=== PATIENT | male | born 1960 | race African-American/Black ===

== ENCOUNTER 2020-10-25 15:01 | Emergency (ER) | payer MEDICAID, OTHER ==
[~2020-10-25] VITALS: Ht 177.8 cm; Wt 73.9 kg
--- NOTE | 2020-10-25 15:14 | NUR ---
Patient presented to the ER for possible STD. Claimed to have burning on urination, yellow discharge. HAd unprotected sex 3 days ago and claims to have symptoms start that night. NKA Independently ambulatory [id number] No significant medical history
[2020-10-25 15:18] VITALS: BP 148/88
[2020-10-25 16:06] LABS: APPEARANCE,URINE CLEAR; BILIRUBIN, URINE NEGATIVE (NEGATIVE); COLOR,URINE PALE YELLOW; GLUCOSE, URINE (UA) NEGATIVE (NEGATIVE); KETONES,URINE NEGATIVE (NEGATIVE); LEUKOCYTE ESTERASE ,URINE NEGATIVE (NEGATIVE); NITRITE,URINE NEGATIVE (NEGATIVE); PH,URINE 6 (4.5-8.0); PROTEIN,URINE NEGATIVE (NEGATIVE); UROBILINOGEN,URINE NORMAL MG/DL (0.0-1.0)
[2020-10-25] MEDS ORDERED: cefTRIAXone 500mg Inj IM ONE (17:00)
[2020-10-25] MEDS ORDERED: Lidocaine 1% MPF 10mg/ml 5ml INJ ONE (17:00)
[2020-10-25] MEDS ORDERED: VIBRAMYCIN100 MG ORAL (17:03)
--- NOTE | 2020-10-25 17:03 | Emergency Room Report ---
History of Present Illness General Chief Complaint: Male Urogenital Problems Source: Patient Present Illness HPI 59 YO male presents to the ED c/o 12/11 in severity dysuria and urinary frequency x 3 days. Pt. reports acute onset after having unprotected intercourse with a new partner. Pt. denies hematuria or discharge. Pt. denies testicular pain or tenderness. He denies abdominal pain or tenderness. He denies swollen tender lymph nodes. Denies fevers or chills. Pt. reports hx of std in the past which presented in the same way. He denies nausea or vomiting. Denies hx of prostate issues. Denies personal or familial hx of DM. Denies significant PmHx. reports ETOH and THC use intermittently/socially. Allergies: Coded Allergies: No Known Allergies (Unverified , 10/25/20) COVID-19 Screening Contact w/high risk pt: No Experienced COVID-19 symptoms?: No COVID-19 Testing performed COLLECTIONS PROFESSIONAL: No COVID-19 Testing Source: have not been tested Patient History Past Medical History: see triage record Past Surgical History: none Pertinent Family History: none Reviewed Nursing Documentation: PMH: Agreed; PSxH: Agreed Nursing Documentation-PMH Past Medical History: No Stated History Review of Systems All Other Systems: negative except mentioned in HPI Physical Exam Vital Signs Date Time Temp Pulse Resp B/P (MAP) Pulse Ox O2 Delivery O2 Flow Rate FiO2 10/25/20 15:03 98.2 62 18 148/88 (108) 97 Room Air Sp02 EP Interpretation: reviewed, normal General Appearance: no apparent distress, alert, GCS 15, non-toxic Head: normocephalic, atraumatic Eyes: bilateral eye normal inspection, bilateral eye PERRL ENT: hearing grossly normal, normal voice Neck: full range of motion Respiratory: lungs clear, normal breath sounds, speaking full sentences Cardiovascular #1: regular rate, rhythm Gastrointestinal: normal bowel sounds, non tender, soft, non-distended, no guarding Rectal: deferred Genitourinary: normal inspection, no CVA tenderness, penis normal - no dc, scrotum normal Musculoskeletal: back normal, normal range of motion, gait/station normal, non- tender Neurologic: alert, motor strength/tone normal, oriented x3, sensory intact, responsive, speech normal Psychiatric: judgement/insight normal Skin: no rash Lymphatic: no adenopathy Medical Decision Making PA Attestation Dr. Whittington Is my supervising Physician whom patient management has been discussed with. Diagnostic Impression: Primary Impression: Urethritis Additional Impression: Contact with or exposure to venereal diseases ER Course cc: Dysuria and urinary frequency. Ddx considered but are not limited to UTi , Urethritis, LGV, STI, Stone, Cystitis, prostatitis, DM Appeals Specialist for PE was: Td. Vital signs: are WNL, pt. is afebrile H&PE are most consistent with Urethritis ORDERS: - UA : Unremarkable ED INTERVENTIONS: -500mg Rocephin IM DISCHARGE: At this time pt. is stable for d/c to home. Will provide printed patient care instructions, and any necessary prescriptions. Care plan and follow up instructions have been discussed with the patient prior to discharge. Labs Test 10/25/20 16:00 Urine Color Pale yellow Urine Appearance Clear Urine pH 6 (4.5-8.0) Urine Specific [place] 1.015 (1.005-1.035) Urine Protein Negative (NEGATIVE) Urine Glucose (UA) Negative (NEGATIVE) Urine Ketones Negative (NEGATIVE) Urine Blood Negative (NEGATIVE) Urine Nitrite Negative (NEGATIVE) Urine Bilirubin Negative (NEGATIVE) Urine Urobilinogen Normal MG/DL (0.0-1.0) Urine Leukocyte Esterase Negative (NEGATIVE) Last Vital Signs Date Time Temp Pulse Resp B/P (MAP) Pulse Ox O2 Delivery O2 Flow Rate FiO2 10/25/20 15:18 98.2 62 18 148/88 97 Room Air Status: improved Disposition: HOME, SELF-CARE Condition: Stable Scripts Doxycycline Hyclate* (VIBRAMYCIN*) 100 Mg Capsule 100 MG ORAL EVERY 12 HOURS for 7 Days, #14 CAP 0 Refills Prov: Merary Barone 10/25/20 Referrals: [facility]ERR[facility] (PCP) Patient Instructions: Urethritis, Adult Additional Instructions: Take medications as directed. Follow up with a Primary Care Provider in 3-5 days, even if your symptoms have resolved. --Please review list of primary care clinics, if you do not already have a primary care provider Return sooner to ED if new symptoms occur, or current symptoms become worse. - Please note that this Emergency Department Report was dictated using [employer] head technology software, occasionally this can lead to erroneous entry secondary to interpretation by the dictation equipment. Merary Barone Oct 25, 2020 17:03
== END 2020-10-25 17:09 | disposition home or self-care (01) ==
LOC: EMR 15:41
DX: N34.2 Other urethritis (principal); Z11.3 Encounter for screening for infections with a predominantly sexual mode of transmission
CPT/HCPCS: 81003; 96372; J0696; Z7502; 99283